=== PATIENT | female | born 1965 | race Caucasian/White ===

== ENCOUNTER 2016-08-23 09:33 | Emergency (ER) | payer BC ==
[2016-08-23 07:11] LABS: BASO % 0.5 % (0-2); EOS % 0.8 % (0-7); EOSINOPHIL ABSOLUTE COUNT 0.1 tho/cmm (0.0-0.7); HCT-HEMATOCRIT 39.7 % (34.0-49.0); HGB-HEMOGLOBIN 13.5 gm/dl (12.0-15.5); IMMATURE GRANULOCYTES ABSOLUTE 0.02 tho/cmm (0-0.03); IMMATURE GRANULOCYTES PERCENT 0.3 % (0-0.3); LYMPH % 33.5 % (20-45); LYMPH ABSOLUTE COUNT 2.7 tho/cmm (0.8-4.5); MCH (MEAN CORPUSCULAR HGB) 30.3 pg (28.0-32.0); MONO % 8.3 % (0-12); MONOCYTE ABSOLUTE COUNT 0.7 tho/cmm (0.0-1.2); NEUTROPHIL ABSOLUTE COUNT 4.5 tho/cmm (1.6-8.0); NEUTROPHIL-AUTOMATED 4.5 tho/cmm (1.6-8.0); NEUTROPHILS % 56.6 % (40-80); PLATELET COUNT 500 tho/cmm (150-450); RED BLOOD COUNT 4.46 mil/cmm (4.00-5.20); RED CELL DISTRIBUTION WIDTH 12.5 % (12.4-16.4); WHITE BLOOD COUNT 7.9 tho/cmm (4.0-10.0)
[2016-08-23 07:41] LABS: ALB/GLOB RATIO 1.2 (0.8-2.0); ALBUMIN 4.5 g/dl (3.5-5.0); ALKALINE PHOSPHATASE 99 U/L (33-138); ALT/SGPT 35 U/L (12-78); ANION GAP 15 mmol/L (0-20); AST/SGOT 19 U/L (10-40); BILIRUBIN,TOTAL 0.7 mg/dl (0-1.5); BLOOD UREA NITROGEN 30 mg/dl (6-24); C-REACTIVE PROTEIN 0.6 mg/dl (0-0.9); CALCIUM 9.3 mg/dl (8.5-10.5); CARBON DIOXIDE-VENOUS 21 mmol/L (22-32); CHLORIDE 102 mmol/l (96-110); CREATININE 1.42 mg/dl (0.50-1.10); GLUCOSE 127 mg/dL (70-110); LIPASE 608 U/L (73-393); SODIUM 134 mmol/L (135-145); eGFR VALUE FOR BLACK 49 mL/Min
[2016-08-23 07:42] LABS: URINE BILIRUBIN NEGATIVE (NEG); URINE BLOOD MODERATE (NEG); URINE GLUCOSE (UA) NEGATIVE (NEG); URINE KETONE NEGATIVE (NEG); URINE LEUKOCYTE ESTERASE POSITIVE (NEG); URINE NITRITE NEGATIVE (NEG); URINE PROTEIN SMALL (NEG)
[2016-08-23 07:45] LABS: URINE APPEARANCE CLEAR; URINE COLOR YELLOW
[2016-08-23 07:49] LABS: URINE MUCUS 1+
[2016-08-23 07:50] LABS: URINE RBC 0-3 /[HPF] (0-5)
[~2016-08-23 09:33] MED LIST: ABACAVIR300 M1; ADVIL200 MG; ANTIVERT25 MG PO; AVALIDE 150-12.1 TAB PO; AZITHROMYCIN250 M1 PO; BENTYL20 MG; BENTYL20 MG PO; BP MED; CHERATUSSIN; CHERATUSSIN AC118 M1 PO; CIPRO500 MG PO; CITALOPRAM HBR10 M1 PO; COMPAZINE10 M PO; DOXYCYCLINE HY100 M3 PO; FLUOXETINE HCL20 M2 PO; FLUTICASONE PRO16 G1; FUROSEMIDE20 M1 PO; GRALISE600 M1 PO; GYNODIOL0.5 MG PO; HYDROCHLOROTH12.5 M1 PO; HYDROCHLOROTH12.5 M3 PO; LASIX20 M1 PO; LIPITOR20 M1 PO; LISINOPRIL20 MG; LISINOPRIL40 M1 PO; LISINOPRIL40 MG PO; NORCO 5/325 TAB1 TAB PO; NORVASC5 M2 PO; NORVASC5 MG PO; OMEPRAZOLE; OMEPRAZOLE20 M4 PO; OMEPRAZOLE20 MG PO; PHENERGAN25 M2 RC; PREVACID30 MG; PROTONIX40 M1 PO; PROVERA10 MG PO; TENORMIN25 MG PO; TENORMIN50 MG PO; TOPAMAX25 MG PO; TOPAMAX50 MG PO; TRIBENZOR; TRICOR145 M2 PO; TUMS500 MG; TYLENOL325 M2 PO; ULTRAM50 MG; ZITHROMAX250 M1 PO; ZOFRAN ODT4 MG PO; ZOFRAN ODT4 MG/UDTAB PO; ZOFRAN4 M2 PO; ZOFRAN4 MG
[2016-08-23] MEDS ORDERED: ZOFRAN4 M2 PO (09:40)
== END 2016-08-23 09:53 ==
LOC: EDMED 09:33
PROVIDERS: Emergency Medicine
DX: E86.0 Dehydration (principal); R11.10 Vomiting, unspecified; R19.7 Diarrhea, unspecified; N28.9 Disorder of kidney and ureter, unspecified; I10 Essential (primary) hypertension; Z90.49 Acquired absence of other specified parts of digestive tract
CPT/HCPCS: J2405; J7030